=== PATIENT | male | born 1970 | race Caucasian/White ===

== ENCOUNTER 2017-12-30 21:37 | Observation (INO) | payer OTHER ==
[2017-12-30 21:38] VITALS: BMI 26.9
--- NOTE | 2017-12-30 21:47 | ED PDOC ---
Arrival/HPI - General Time Seen by Provider: 12/30/17 21:43 Historian: Patient - History of Present Illness Narrative History of Present Illness (Text): 12/30/17 21:47 James Godinez is a 47 year old male smoker who presents to the ED complaining of chest pain and back pain. Patient states he woke up yesterday morning with left-sided chest pain radiating to his left mid back, which is worsened with movement and deep inspiration. Patient states he took Motrin twice yesterday with no significant relief. Patient denies any shortness of breath, abdominal pain, nausea, vomiting, headache, or any other complaints. Symptom Onset: Gradual Symptom Course: Unchanged Activities at Onset: Rest, Light Context: Home Past Medical History - Provider Review Nursing Documentation Reviewed: Yes - Tetanus Immunization Tetanus Immunization: Up to Date - HEENT Other/Comment: anurisum occipital area - Psychiatric Hx Substance Use: No - Anesthesia Hx Anesthesia: No Hx Anesthesia Reactions: No Hx Malignant Hyperthermia: No Family/Social History - Physician Review Nursing Documentation Reviewed: Yes Family/Social History: Unknown Family HX Smoking Status: Light Smoker < 10 Cigarettes Daily Hx Alcohol Use: No Hx Substance Use: No Allergies/Home Meds Allergies/Adverse Reactions: Allergies No Known Allergies Allergy (Verified 12/30/17 21:48) Home Medications: Home Meds Medication Instructions Recorded Confirmed No Known Home Med 12/30/17 12/30/17 Review of Systems - Physician Review All systems were reviewed & negative as marked: Yes - Review of Systems Constitutional: Normal. absent: Fevers Eyes: Normal ENT: Normal Respiratory: Normal. absent: SOB, Cough Cardiovascular: Chest Pain Gastrointestinal: Normal. absent: Abdominal Pain, Diarrhea, Nausea, Vomiting Genitourinary Male: Normal. absent: Dysuria, Frequency, Hematuria, Urinary Output Changes Musculoskeletal: Back Pain. absent: Neck Pain Skin: Normal. absent: Rash Neurological: Normal. absent: Headache, Dizziness Endocrine: Normal Hemo/Lymphatic: Normal Psychiatric: Normal Physical Exam Vital Signs Reviewed: Yes Vital Signs Temp Pulse Resp BP Pulse Ox 12/30/17 21:45 98.4 F 93 H 20 139/93 H 99 Temperature: Afebrile Blood Pressure: Normal Pulse: Regular Respiratory Rate: Normal Appearance: Positive for: Well-Appearing, Non-Toxic, Comfortable Pain Distress: None Mental Status: Positive for: Alert and Oriented X 3 - Systems Exam Head: Present: Atraumatic, Normocephalic Pupils: Present: PERRL Extroacular Muscles: Present: EOMI Conjunctiva: Present: Normal Mouth: Present: Moist Mucous Membranes Neck: Present: Normal Range of Motion. No: Meningeal Signs, MIDLINE TENDERNESS , Paraspinal Tenderness Respiratory/Chest: Present: Clear to Auscultation, Good Air Exchange. No: Respiratory Distress, Accessory Muscle Use Cardiovascular: Present: Regular Rate and Rhythm, Normal S1, S2. No: Murmurs Abdomen: No: Tenderness, Distention, Peritoneal Signs Back: Present: Normal Inspection Upper Extremity: Present: Normal Inspection. No: Cyanosis, Edema Lower Extremity: Present: Normal Inspection. No: Edema Neurological: Present: GCS=15, CN II-XII Intact, Speech Normal, Motor Func Grossly Intact, Normal Sensory Function, Normal Cerebellar Funct Skin: Present: Warm, Dry, Normal Color. No: Rashes Psychiatric: Present: Alert, Oriented x 3, Normal Insight, Normal Concentration Medical Decision Making ED Course and Treatment: 12/30/17 21:47 Impression: 47 year old male c/o left-sided chest pain radiating to left back. Plan: -- EKG -- CXR -- Labs, cardiac enzymes, D-dimer -- Aspirin -- Percocet -- Reassess and disposition Prior Visits: Notes and results from previous visits were reviewed. Progress Notes: Reviewed EKG, NSR at 82 bpm. Incomplete RBBB. 12/31/17 00:15 CXR reviewed, shows no acute processes. 12/31/17 00:[address] Philippe, who is aware and agrees with plan. Accepts pt in to her service. Pt will go to Telemetry observation for chest pain. Requests Dr. An on consult. - Lab Interpretations Lab Results: 12/30/17 22:30 12/30/17 22:30 Lab Results 12/30/17 22:30: D-Dimer, Quantitative < 200 12/30/17 22:30: WBC 8.6 D, RBC 4.67, Hgb 13.4 L, Hct 40.1 L, MCV 85.9, MCH 28.7 , MCHC 33.4, RDW 13.6, Plt Count 259, MPV 11.0 12/30/17 22:30: Sodium 144, Potassium 3.8, Chloride 107, Carbon Dioxide 28, Anion Gap 13, BUN 16, Creatinine 1.1, Est GFR ( Amer) > 60, Est GFR (Non- Af Amer) > 60, Random Glucose 126 H, Calcium 9.0, Total Bilirubin 0.3, AST 24, ALT 38, Alkaline Phosphatase 42, Lactate Dehydrogenase 321 L, Total Creatine Kinase 173, Troponin I < 0.01, Total Protein 6.8, Albumin 4.2, Globulin 2.6, Albumin/Globulin Ratio 1.6 12/30/17 22:30: PT 12.2, INR 1.07, APTT 30.7 I have reviewed the lab results: Yes - RAD Interpretation Radiology Orders: 12/30/17 21:54 CHEST PORTABLE [RAD] [employer] Project Manager: ED Physician - EKG Interpretation Interpreted by ED Physician: Yes Type: 12 lead EKG - Medication Orders Current Medication Orders: Morphine Sulfate (Morphine) 4 mg IVP STAT STA Stop: 12/31/17 00:26 Discontinued Medications Aspirin (Aspirin) 325 mg PO ONCE STA Stop: 12/30/17 22:01 Last Admin: 12/30/17 22:30 Dose: 325 mg Oxycodone/Acetaminophen (Percocet 5/325 Mg Tab) 1 tab PO STAT STA Stop: 12/30/17 22:01 Last Admin: 12/30/17 22:35 Dose: 1 tab [facility] Pain Assessment Document 12/30/17 22:35 (Rec: 12/30/17 22:35 [id number]) Pain Reassessment Is this a pain reassessment? Yes Location Pain Location Body Site Chest Back Leg Re-Assess: [facility] Pain Assessment Document 12/30/17 23:35 (Rec: 12/31/17 00:25 [id number]) Pain Reassessment Is this a pain reassessment? Yes Sleep Is patient sleeping during reassessment? No Presence of Pain Presence of Pain Yes Description Pain not relieved and LIP/MD was Yes notified - Scribe Statement The provider has reviewed the documentation as recorded by the Scribe Aranza Kennedy All medical record entries made by the Scribe were at my direction and personally dictated by me. I have reviewed the chart and agree that the record accurately reflects my personal performance of the history, physical exam, medical decision making, and the department course for this patient. I have also personally directed, reviewed, and agree with the discharge instructions and disposition. Disposition/Present on Arrival - Present on Arrival Any Indicators Present on Arrival: No History of DVT/PE: No History of Uncontrolled Diabetes: No Urinary Catheter: No History of Decub. Ulcer: No History Surgical Site Infection Following: None - Disposition Have Diagnosis and Disposition been Completed?: Yes Diagnosis: Chest pain Disposition: HOSPITALIZED Disposition Time: 00:37 Patient Plan: Observation Condition: STABLE Discharge Instructions (ExitCare): Chest Pain (ED)
[2017-12-30] MEDS ORDERED: Oxycodone/Acetaminophen 5/325 mg Tab PO STA (22:00)
[2017-12-30 23:19] LABS: HEMOGLOBIN 13.4 g/dL (14.0-18.0); MEAN CELL VOLUME 85.9 fl (80.0-105.0); MEAN CORPUSCULAR HEMOGLOBIN 28.7 pg (25.0-35.0); MEAN CORPUSCULAR HGB CONC 33.4 g/dl (31.0-37.0); RBC 4.67 10^6/uL (3.5-6.1); RED CELL DISTRIBUTION WIDTH 13.6 % (11.5-14.5); WHITE BLOOD COUNT 8.6 10^3/ul (4.5-11.0)
[2017-12-30 23:23] LABS: INR 1.07; PARTIAL THROMBOPLASTIN TIME 30.7 Seconds (25.1-36.5); PROTHROMBIN TIME 12.2 SECONDS (9.4-12.5)
[2017-12-30 23:32] LABS: ALB/GLOB RATIO 1.6 (1.1-1.8); ALBUMIN 4.2 g/dL (3.0-4.8); ALT/SGPT 38 U/L (7-56); AST/SGOT 24 U/L (17-59); BLOOD UREA NITROGEN 16 mg/dL (7-21); GFR NON-AFRICAN AMERICAN > 60
[2017-12-30 23:43] LABS: TROPONIN I < 0.01 ng/mL
[2017-12-31] MEDS ORDERED: Morphine 4 mg/ml ISec IVP STA (00:25)
[2017-12-31 07:58] LABS: TROPONIN I < 0.01 ng/mL
--- NOTE | 2017-12-31 10:14 | CP.PCM.CON ---
History of Present Illness - History of Present Illness History of Present Illness: awake, alert, complaints of left back pain especially when moving and deep breathing radiating to left chest Reason for consultation: Cardiac evaluation of chest pain. History of present illness: A 47 year old male who came in to the ER due complaints of left lower back pain radiating to left chest aggravated when moving and deep breathing. He took Motrin with no relief. He was given Flexeril with some relief. Denies any fall or strenuous activity. 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 Denies any other medical problems. Seen and examined by me and Dr. Hernandez Review of Systems - Review of Systems All systems: reviewed and no additional remarkable complaints except Review of Systems: from HPI Past Patient History - Infectious Disease Hx of Infectious Diseases: None - Tetanus Immunizations Tetanus Immunization: Up to Date - Past Social History Smoking Status: Light Smoker < 10 Cigarettes Daily - NEUROLOGICAL Hx Neurological Disorder: Yes Other/Comment: Brain aneurysm 10 yrs ago. No sx. Monitored yearly - HEENT Other/Comment: anurisum occipital area - MUSCULOSKELETAL/RHEUMATOLOGICAL Hx Falls: No - PSYCHIATRIC Hx Substance Use: No - SURGICAL HISTORY Hx Surgeries: No - ANESTHESIA Hx Anesthesia: No Hx Anesthesia Reactions: No Hx Malignant Hyperthermia: No Meds Allergies/Adverse Reactions: Allergies Allergy/AdvReac Type Severity Reaction Status Date / Time No Known Allergies Allergy Verified 12/30/17 21:48 - Medications Medications: Current Medications Nicotine (Nicoderm Cq) 1 patch TD DAILY [facility]ENN[facility] Last Admin: 12/31/17 03:48 Dose: 1 patch Physical Exam - Constitutional Appears: No Acute Distress - Eye Exam Eye Exam: Normal appearance - ENT Exam ENT Exam: Mucous Membranes Moist - Respiratory Exam Respiratory Exam: Decreased Breath Sounds, NORMAL BREATHING PATTERN - Cardiovascular Exam Cardiovascular Exam: +S1, +S2 Additional comments: left lower back pain radiating to left chest worse when moving and deep breathing Site no redness, no swelling - GI/Abdominal Exam GI & Abdominal Exam: Normal Bowel Sounds, Soft - Extremities Exam Extremities exam: Positive for: normal capillary refill - Neurological Exam Neurological exam: Alert, Oriented x3 - Psychiatric Exam Psychiatric exam: Normal Affect - Skin Skin Exam: Dry, Warm Results - Vital Signs Recent Vital Signs: Last Vital Signs Temp 98.3 F 12/31/17 06:00 Pulse 64 12/31/17 06:00 Resp 18 12/31/17 06:00 BP 106/78 12/31/17 06:00 Pulse Ox 100 12/31/17 02:00 - Labs Result Diagrams: 12/30/17 22:30 12/30/17 22:30 Labs: Laboratory Results - last 24 hr 12/31/17 06:30 Lactate Dehydrogenase 315 L Total Creatine Kinase 145 Troponin I < 0.01 Assessment & Plan - Assessment and Plan (Free Text) Assessment: A 47 year old male who came in to the ER due complaints of left lower back pain radiating to left chest aggravated when moving and deep breathing. He took Motrin with no relief. He was given Flexeril with some relief. Denies any fall or strenuous activity. 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 Denies any other medical problems. No previous cardiac work up at [facility] [place]. Atypical chest pain, Troponin normal.EKG - normal sinus rhythm,no ischemia, Chest X ray normal. Plan: Atypical chest pain, musculoskeltal in nature Heart rate and blood pressure controlled Troponin x 2 normal Pain management for back pain Will start Naproxen Smoking cessation On Nicoderm patch Continue current treatment Continue current medication Out patient ECHO and Stress test Further recommendation during hospital course Will follow up Plan and treatment discussed with Dr. Hernandez Thank you Dr. Philippe for the opportunity of taking care of Mr. James Godinez - Date & Time Date: 12/31/17 Time: 06:35
[2017-12-31] MEDS ORDERED: Pantoprazole 40 mg EC Tab PO STA (10:29)
[2017-12-31] MEDS ORDERED: Naproxen 550 mg Tab PO STA (10:32)
--- NOTE | 2017-12-31 10:32 | RAD ---
Date of service: 12/30/2017 HISTORY: pain COMPARISON: No prior. FINDINGS: LUNGS: The lungs are well inflated and clear. PLEURA: No significant pleural effusion identified, no pneumothorax apparent. CARDIOVASCULAR: Normal. OSSEOUS STRUCTURES: No significant abnormalities. VISUALIZED UPPER ABDOMEN: Normal. OTHER FINDINGS: None. IMPRESSION: No active pulmonary disease.
[2017-12-31] MEDS: Naproxen 550 mg Tab PO SCH ×2 (10:42→17:09)
--- NOTE | 2017-12-31 12:54 | CARD ---
APPROVED REPORT Date of service: 12/30/2017 EKG Measurement Heart [id number] <Conclusion> Normal sinus rhythm Incomplete right bundle branch block Borderline ECG
[2017-12-31 14:14] LABS: TROPONIN I < 0.01 ng/mL
--- NOTE | 2017-12-31 23:33 | HP ---
12/31/17 Copied To: Pam Philippe MD Attending MD: Pam Philippe MD CHIEF COMPLAINT: Chest pain. HISTORY OF PRESENT ILLNESS: Mr. James Godinez, 47-year-old male with smoking history. Came to the Emergency Department complaining about chest pain and back pain. The patient states that he woke up yesterday morning with left-sided chest pain, radiating to his left mid back, which is worse with movement and deep inspiration. The patient states that he took Motrin twice yesterday with no significant relief. The patient denies any shortness of breath. No abdominal pain. No nausea, vomiting, diarrhea. No fever. No chills. Seen by Special Effects Artist, Dr. Hernandez and the patient was given naproxen and Flexeril one dose. With that, he felt a little bit better. PAST MEDICAL HISTORY: Nonsignificant. FAMILY HISTORY: Father and mother, noncontributory. HABITS: Smoking, light smoker, less than 10 cigarettes as per the patient. Alcohol, no. Substance abuse, no. ALLERGIES: THE PATIENT IS NOT ALLERGIC WITH ANY MEDICATIONS. HOME MEDICATIONS: Denied except Motrin. REVIEW OF SYSTEMS: The patient was seen and examined on the bedside in his room in the telemetry. was sitting on the bedside also. Pain a little bit better, but still having pain in the back side, shooting on the front. No nausea or vomiting. No fever. No chills. No shortness of breath or cough. No abdominal pain, fever, chills, nausea, vomiting. No dysuria, frequency, hematuria, urinary output change. No neck pain. No headache. No dizziness. PHYSICAL EXAMINATION: VITAL SIGNS: Temperature 98.4, pulse 93, respiratory rate 20, blood pressure 139/93, pulse oximetry 99. HEENT: Head normocephalic, atraumatic. Eyes PERRLA. Extraocular muscles intact. Conjunctivae clear. Nose patent. Mucous membrane moist. NECK: Supple. No carotid bruit. No JVD or thyromegaly. CHEST: Bilaterally symmetrical. HEART: S1 and S2 positive. LUNGS: Clear to auscultation. ABDOMEN: Soft. Bowel sounds positive. No organomegaly. EXTREMITIES: No edema. No cyanosis. NEUROLOGICAL: The patient is awake and alert. Moving all 4 extremities. No focal deficits. LABORATORY DATA: White blood cells 8.3, hemoglobin 13.4, hematocrit 40.1, platelets 259. Sodium 145, potassium 3.8, BUN 16, creatinine 1.1, glucose 126. ASSESSMENT AND PLAN: Mr. James Godinez, 47-year-old male with anemia, hyperglycemia. Came with chest pain, dermatitis of lips, hypercholesterolemia, hypertriglyceridemia, anemia. The patient is admitted with chest pain, seen by the fitness technician, Dr. Hernandez's nurse practitioner, Milvia Hanson. Complaining about back pain, radiating to the left chest, aggravated by moving and deep breathing. He took Motrin with no relief. He was given Flexeril with some relief. Denies any fall, strenuous activity. Woke up with pain. He smokes 7-10 cigarettes a day, history of brain aneurysm 10 years ago, every year going for CAT scan. Denies any other medication. According to fitness technician, it look like atypical chest pain. Troponin is normal. EKG, normal sinus rhythm. No ischemia. Chest x-ray is normal. It looks like musculoskeletal in nature. Heart rate and blood pressures are well controlled. I gave the patient Flexeril and naproxen [id number]. Nicotine patch given. Discussion done with Dr. Hernandez. Gastrointestinal, deep venous thrombosis prophylaxes. Repeat labs. We will follow up. Pam Philippe MD MTDMini
[2018-01-01 00:16] VITALS: RESP 22
[2018-01-01] MEDS ORDERED: Pantoprazole 40 mg EC Tab PO SCH (06:00)
[2018-01-01 06:53] VITALS: BP 121/84; PULSE 67; TEMP 98; O2SAT 98
--- NOTE | 2018-01-01 07:36 | CP.PCM.PN ---
Subjective - Date & Time of Evaluation Date of Evaluation: 01/01/18 Time of Evaluation: 06:25 - Subjective Subjective: awake, alert, left back pain better Reason for consultation and follow up: Cardiac evaluation of chest pain, complaints of left lower back pain radiating to left chest aggravated when moving and deep breathing. current smoker. Seen and examined by me and Dr. An Objective - Vital Signs/Intake and Output Vital Signs (last 24 hours): Temp Pulse Resp BP Pulse Ox 98 F 67 22 121/84 98 01/01/18 06:00 01/01/18 06:00 01/01/18 06:00 01/01/18 06:00 01/01/18 06:00 Intake and Output: 01/01/18 01/01/18 06:59 18:59 Intake Total 480 Balance 480 - Medications Medications: Current Medications Cyclobenzaprine HCl (Flexeril) 5 mg PO Q8H [facility] [place] Last Admin: 01/01/18 05:19 Dose: 5 mg Naproxen (Anaprox Ds) 550 mg PO BID [facility] [place] Last Admin: 12/31/17 17:09 Dose: 550 mg Nicotine (Nicoderm Cq) 1 patch TD DAILY [facility] [place] Last Admin: 12/31/17 10:42 Dose: 1 patch Pantoprazole Sodium (Protonix Ec Tab) 40 mg PO 0600 [facility] [place] Last Admin: 01/01/18 05:19 Dose: 40 mg - Labs Labs: PT 12.2 SECONDS (9.4-12.5) 12/30/17 22:30 INR 1.07 12/30/17 22:30 APTT 30.7 Seconds (25.1-36.5) 12/30/17 22:30 - Constitutional Appears: No Acute Distress - Eye Exam Eye Exam: Normal appearance - ENT Exam ENT Exam: Mucous Membranes Moist - Respiratory Exam Respiratory Exam: Decreased Breath Sounds, NORMAL BREATHING PATTERN - Cardiovascular Exam Cardiovascular Exam: +S1, +S2 Additional comments: denies chest pain - GI/Abdominal Exam GI & Abdominal Exam: Soft, Normal Bowel Sounds - Extremities Exam Extremities Exam: Normal Capillary Refill - Neurological Exam Neurological Exam: Alert, Awake, Oriented x3 - Psychiatric Exam Psychiatric exam: Normal Affect - Skin Skin Exam: Intact, Warm Assessment and Plan - Assessment and Plan (Free Text) Assessment: A 47 year old male who came in to the ER due complaints of left lower back pain radiating to left chest aggravated when moving and deep breathing. He took Motrin with no relief. He was given Flexeril with some relief. Denies any fall or strenuous activity. 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 Denies any other medical problems. No previous cardiac work up at [facility] [place]. Atypical chest pain, Troponin normal.EKG - normal sinus rhythm,no ischemia, Chest X ray normal.Placed on Naproxene with relief. Plan: Back pain better with Naproxene Heart rate and blood pressure controlled will discontinue telemetry Smoking cessation On Nicoderm patch Continue current treatment Continue current medication Out patient ECHO and Stress test Will follow up Plan and treatment discussed with Dr. An
--- NOTE | 2018-01-01 09:23 | CT ---
Date of service: 01/01/2018 PROCEDURE: CT Thoracic Spine without contrast HISTORY: upper left back pain COMPARISON: None available. TECHNIQUE: Axial computed tomography images were obtained of the thoracic spine without intravenous contrast. Coronal and sagittal reformatted images were created and reviewed. Radiation dose: Total exam DLP = 738 mGy-cm. This CT exam was performed using one or more of the following dose reduction techniques: Automated exposure control, adjustment of the mA and/or kV according to patient size, and/or use of iterative reconstruction technique. FINDINGS: VERTEBRAE: Unremarkable. No fracture. Normal alignment. DISCS/SPINAL CANAL/NEURAL FORAMINA: Within the limits of the CT technique, no disc herniation seen. No central canal or neural foraminal stenosis.. PARASPINAL SOFT TISSUES: Unremarkable. OTHER FINDINGS: Unremarkable. IMPRESSION: Unremarkable CT of the thoracic spine.
--- NOTE | 2018-01-01 09:37 | MRI ---
Date of service: 01/01/2018 PROCEDURE: MRI BRAIN WITHOUT CONTRAST HISTORY: Brain aneurysm COMPARISON: None available. TECHNIQUE: Multiplanar, multisequence MR images of the brain were obtained without intravenous contrast enhancement. FINDINGS: HEMORRHAGE: None DWI: No evidence of an acute or early subacute infarction. BRAIN PARENCHYMA: No mass effect or edema. No atrophy or chronic microvascular ischemic changes. VENTRICLES: Unremarkable. No hydrocephalus. CRANIUM: Unremarkable. ORBITS: Grossly unremarkable. PARANASAL SINUSES/MASTOIDS: There is a mucous retention cyst in the left maxillary sinus VASCULAR SYSTEM: Skull base flow voids intact. There is no obvious aneurysm. Given the history of past history of aneurysm and MRA study may be helpful for further evaluation. OTHER FINDINGS: None. IMPRESSION: Unremarkable non contrast enhanced MRI of the brain.
[2018-01-01] MEDS: Naproxen 550 mg Tab PO SCH (09:50)
== END 2018-01-01 16:36 | disposition home or self-care (01) ==
LOC: ED 21:37 → ERH 12-31 00:34 → 2RNO 12-31 02:47 → 5RNO 01-01 12:04
PROVIDERS: ADMIT Internal Medicine; ATTEND Internal Medicine
DX: R07.89 Other chest pain (principal); M54.5 Low back pain; D64.9 Anemia, unspecified; E78.00 Pure hypercholesterolemia, unspecified; E78.1 Pure hyperglyceridemia; L30.9 Dermatitis, unspecified; F17.210 Nicotine dependence, cigarettes, uncomplicated
CPT/HCPCS: 36415; 70551; 71045; 72128; 80053; 82550; 83615; 84484; 85027; 85378; 85610; 85730; 93005; 96374; 99285; G0378; J2270

== ENCOUNTER 2018-06-22 09:33 | Emergency (ER) | payer OTHER ==
[2018-06-22 09:56] VITALS: BMI 26.6
[2018-06-22] MEDS ORDERED: Lidocaine 5% Patch TD ONE (10:17)
--- NOTE | 2018-06-22 10:31 | ED PDOC ---
Arrival/HPI - General Historian: Patient - History of Present Illness Narrative History of Present Illness (Text): 06/22/18 10:21 48 year old male with PMH of Hypercholesterolemia, cerebral aneurysm presents to the emergency department with sharp lower back pain x3 days. It's 8/10, shooting, radiates to b/l lower legs up to the knees level, worsens with prolonged sitting/standing, partially relieved with rest and motrin. Patient denies focal neurological symptoms, loss of sensation, urine/bowel incontinence, fever, chills. Patient reports symptoms of cough, runny nose, sneezing, mild headache since yesterday. 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 Patient denied chest pain, SOB, palpitations, dizziness, nausea, vomiting, diarrhea, change in bowel movement. Patient is following up in [facility] in [place] for his cerebral aneurysm, seen neurosurgeon 2 month ago, and has a follow up appointment in 2 years. 06/22/18 10:40 Time/Duration: < week Symptom Onset: Sudden Symptom Course: Worsening Quality: Other (sharp/shooting) Severity Level: 8 Context: Standing, Walking <Ismael Marie - Last Filed: 06/22/18 10:40> <Kennedy Martin - Last Filed: 06/22/18 11:45> - General Chief Complaint: Back Pain Past Medical History - Infectious Disease Hx of Infectious Diseases: None - Tetanus Immunization Tetanus Immunization: Up to Date - Cardiac Hx Cardiac Disorders: No - Pulmonary Hx Respiratory Disorders: No - Neurological Hx Neurological Disorder: Yes Other/Comment: Brain aneurysm 10 yrs ago. No sx. Monitored yearly - HEENT Other/Comment: anurisum occipital area - Musculoskeletal/Rheumatological Hx Falls: No - Psychiatric Hx Substance Use: No - Anesthesia Hx Anesthesia: No Hx Anesthesia Reactions: No Hx Malignant Hyperthermia: No <Ismael Marie - Last Filed: 06/22/18 10:40> - Provider Review Nursing Documentation Reviewed: Yes <Kennedy Martin - Last Filed: 06/22/18 11:45> Family/Social History Family/Social History: Unknown Family HX Smoking Status: Light Smoker < 10 Cigarettes Daily Hx Alcohol Use: No Hx Substance Use: No <Ismael Marie - Last Filed: 06/22/18 10:40> - Physician Review Nursing Documentation Reviewed: Yes <Kennedy Martin - Last Filed: 06/22/18 11:45> Allergies/Home Meds <Ismael Marie - Last Filed: 06/22/18 10:40> <Kennedy Martin - Last Filed: 06/22/18 11:45> Allergies/Adverse Reactions: Allergies No Known Allergies Allergy (Verified 06/22/18 10:00) Review of Systems - Physician Review All systems were reviewed & negative as marked: Yes - Review of Systems Constitutional: Normal Eyes: Normal ENT: Normal Respiratory: Normal Cardiovascular: Normal Gastrointestinal: Normal Genitourinary Male: Normal Musculoskeletal: Back Pain Neurological: Headache, Other (+leg raise test at 60 degrees bilaterally). absent: Focal Weakness Endocrine: Normal Hemo/Lymphatic: Normal Psychiatric: Normal <Ismael Marie - Last Filed: 06/22/18 10:40> Physical Exam Vital Signs Reviewed: Yes Vital Signs Temp Pulse Resp BP Pulse Ox 06/22/18 09:56 98.8 F 80 18 111/78 96 Temperature: Afebrile Blood Pressure: Normal Pulse: Regular Respiratory Rate: Normal Appearance: Positive for: Well-Appearing, Non-Toxic Pain Distress: Moderate Mental Status: Positive for: Alert and Oriented X 3 - Systems Exam Head: Present: Atraumatic, Normocephalic Pupils: Present: PERRL Extroacular Muscles: Present: EOMI Conjunctiva: Present: Normal Mouth: Present: Moist Mucous Membranes Pharnyx: Present: Normal Respiratory/Chest: Present: Clear to Auscultation, Good Air Exchange. No: Respiratory Distress, Accessory Muscle Use, Wheezes, Rhonchi Cardiovascular: Present: Regular Rate and Rhythm, Normal S1, S2 Abdomen: Present: Normal Bowel Sounds. No: Tenderness, Distention Back: Present: Normal Inspection, Pain with Leg Raise (at 60 degrees b/l). No: Midline Tenderness Upper Extremity: Present: Normal Inspection. No: Cyanosis, Edema Lower Extremity: Present: Normal Inspection. No: Edema Neurological: Present: GCS=15, CN II-XII Intact, Speech Normal Skin: Present: Warm, Dry, Normal Color Psychiatric: Present: Alert, Oriented x 3, Normal Insight <Ismael Marie - Last Filed: 06/22/18 10:40> Vital Signs Temp Pulse Resp BP Pulse Ox 06/22/18 09:56 98.8 F 80 18 111/78 96 <Kennedy Martin - Last Filed: 06/22/18 11:45> Medical Decision Making - Medication Orders Current Medication Orders: Discontinued Medications Diazepam (Valium) 5 mg PO ONCE ONE; Protocol Stop: 06/22/18 10:17 Ketorolac Tromethamine (Toradol) 60 mg IM STAT STA Stop: 06/22/18 10:16 Lidocaine (Lidoderm) 1 ea TD ONCE ONE Stop: 06/22/18 10:18 <Ismael Marie - Last Filed: 06/22/18 10:40> ED Course and Treatment: 06/22/18 11:45 James Godinez is a 48 year old male who presents to the emergency department with a complaint of 3 day duration lower back pain. In agreement with resident note, which includes further HPI details. Patient was seen and evaluated with resident, came up with plan and treatment together. - Lab Interpretations Lab Results: Urine Color Yellow (YELLOW) 06/22/18 10:47 Urine Appearance Clear (CLEAR) 06/22/18 10:47 Urine pH 6.0 (4.7-8.0) 06/22/18 10:47 Ur Specific [place] 1.025 (1.005-1.035) 06/22/18 10:47 Urine Protein Negative mg/dL (<30 mg/dL) 06/22/18 10:47 Urine Glucose (UA) Negative mg/dL (NEGATIVE) 06/22/18 10:47 Urine Ketones Negative mg/dL (NEGATIVE) 06/22/18 10:47 Urine Blood Trace-intact (NEGATIVE) H 06/22/18 10:47 Urine Nitrate Negative (NEGATIVE) 06/22/18 10:47 Urine Bilirubin Negative (NEGATIVE) 06/22/18 10:47 Urine Urobilinogen 0.2 E.U./dL (<1 E.U./dL) 06/22/18 10:47 Ur Leukocyte Esterase Negative Tad/uL (NEGATIVE) 06/22/18 10:47 Urine RBC 2 - 5 /hpf (0-2) H 06/22/18 10:47 Urine WBC 0 - 2 /hpf (0-6) 06/22/18 10:47 Ur Epithelial Cells None /hpf (0-5) 06/22/18 10:47 Amorphous Sediment Few /hpf (NONE) 06/22/18 10:47 Urine Bacteria Mod /hpf (NONE) 06/22/18 10:47 Urine Other Uyeast /hpf 06/22/18 10:47 - Medication Orders Current Medication Orders: Discontinued Medications Diazepam (Valium) 5 mg PO ONCE ONE; Protocol Stop: 06/22/18 10:17 Last Admin: 06/22/18 10:39 Dose: 5 mg Ketorolac Tromethamine (Toradol) 60 mg IM STAT STA Stop: 06/22/18 10:16 Last Admin: 06/22/18 10:38 Dose: 60 mg MAR Pain Assessment Document 06/22/18 10:38 OCS (Rec: 06/22/18 10:39 OCS [id number]) Pain Reassessment Is this a pain reassessment? No Sleep Is patient sleeping during reassessment? No Presence of Pain Presence of Pain Yes Pain Scale Used Protocol: PSCALES Pain Scale Used Numeric Location Left, Right or Bilateral Bilateral Upper or Lower Lower Pain Location Body Site Back Description Description Constant Intensity of Pain at present 9 Pain Behavior Irritability Facial Grimacing Aggravating Factors ADL's IM Administration Charges Document 06/22/18 10:38 OCS (Rec: 06/22/18 10:39 OCS [id number]) Injection Site MAR Injection Site Left Arm Charges for Administration # of IM Administrations 1 Lidocaine (Lidoderm) 1 ea TD ONCE ONE Stop: 06/22/18 10:18 Last Admin: 06/22/18 10:38 Dose: 1 ea MAR Transdermal Patch Site Document 06/22/18 10:38 OCS (Rec: 06/22/18 10:38 OCS [id number]) Transdermal Patch Site Transdermal Patch Site Left Lower Back <Kennedy Martin - Last Filed: 06/22/18 11:45> - Scribe Statement The provider has reviewed the documentation as recorded by the Mavisibbaldo Leo Provider Scribe Attestation: All medical record entries made by the Scribe were at my direction and personally dictated by me. I have reviewed the chart and agree that the record accurately reflects my personal performance of the history, physical exam, me dical decision making, and the department course for this patient. I have also personally directed, reviewed, and agree with the discharge instructions and disposition. <Kennedy Martin - Last Filed: 06/22/18 11:45> Disposition/Present on Arrival - Present on Arrival History of DVT/PE: No History of Uncontrolled Diabetes: No Urinary Catheter: No History of Decub. Ulcer: No History Surgical Site Infection Following: None <Ismael Marie - Last Filed: 06/22/18 10:40> - Present on Arrival Any Indicators Present on Arrival: No - Disposition Have Diagnosis and Disposition been Completed?: Yes Disposition Time: 11:35 Patient Plan: Discharge <Kennedy Martin - Last Filed: 06/22/18 11:45> - Disposition Diagnosis: Back pain Disposition: HOME/ ROUTINE Patient Problems: Current Active Problems Problem Status Onset Back pain Acute Condition: IMPROVED Discharge Instructions (ExitCare): Upper Back Pain (DC) Print Language: LAO Additional Instructions: Please follow up with your PCP in 1 week Please take medication as prescribed. Prescriptions: Cyclobenzaprine [Flexeril] 5 mg PO PRN PRN #10 tab PRN Reason: Muscle Spasm Ibuprofen [Motrin] 600 mg PO Q6H #12 tab Lidocaine 5% [Lidoderm] 1 ea TD Q12 #6 patch Referrals: Milly Rasheed MD [Medical Doctor] - Follow up with primary [facility] [place]] - Follow up with primary Forms: [employer] (Telugu), WORK NOTE
[2018-06-22 10:58] LABS: URINE BILIRUBIN NEGATIVE (NEGATIVE); URINE BLOOD TRACE-INTACT (NEGATIVE); URINE GLUCOSE (UA) NEGATIVE (NEGATIVE); URINE LEUKOCYTE ESTERASE NEGATIVE Leu/uL (NEGATIVE); URINE PROTEIN NEGATIVE mg/dL (<30 mg/dL); URINE UROBILINOGEN 0.2 E.U./dL (<1 E.U./dL)
[2018-06-22 10:59] LABS: URINE APPEARANCE CLEAR (CLEAR); URINE COLOR YELLOW (YELLOW)
[2018-06-22 11:06] LABS: URINE BACTERIA MOD /hpf; URINE WBC 0 - 2 /hpf (0-6)
[2018-06-22 11:07] LABS: URINE AMORPHOUS SEDIMENT FEW /hpf
[2018-06-22 11:58] VITALS: BP 104/64; PULSE 79; RESP 17; TEMP 98.2; O2SAT 97
== END 2018-06-22 12:00 | disposition home or self-care (01) ==
LOC: ED 09:33
DX: M54.5 Low back pain (principal); E78.00 Pure hypercholesterolemia, unspecified; F17.210 Nicotine dependence, cigarettes, uncomplicated
CPT/HCPCS: 81001; 96372; 99282; J1885

== ENCOUNTER 2018-06-23 10:21 | Emergency (ER) | payer OTHER ==
[2018-06-23 10:22] VITALS: BMI 26.6
[2018-06-23 12:23] VITALS: PULSE 85; RESP 19; TEMP 98
[2018-06-23 12:24] VITALS: BP 129/85; O2SAT 98
--- NOTE | 2018-06-23 19:31 | ED PDOC ---
Arrival/HPI - General Chief Complaint: Back Pain Time Seen by Provider: 06/23/18 11:15 Historian: Patient - History of Present Illness Narrative History of Present Illness (Text): 06/23/18 19:28 A 48 year old male, with PMH of low back pain, presents to the emergency department complaining of right side back pain that radiates down his RLE for 3- 4 days. Pain is similar to pain he has had in the past "years ago". Patient denies trauma, bowel or bladder dysfunction, saddle paresthesias, weakness, difficulty ambulating. Patient reports he was here yesterday for similar complaint and was given Toradol in the ED and prescriptions for Naprosyn, Lidocaine patch and Flexeril yesterday. Patient states he is not using the Lidocaine patch because he feels like it is not working. Patient denies notes also experiencing frontal headache with nasal congestion. Patient denies sudden onset of h/a, "thunderclap" h/a, worst h/a of his life, neck pain or stiffness, fever, chills, abdominal pain, any urinary symptoms, or any other complaints at this time. Past Medical History - Provider Review Nursing Documentation Reviewed: Yes - Infectious Disease Hx of Infectious Diseases: None - Tetanus Immunization Tetanus Immunization: Up to Date - Cardiac Hx Cardiac Disorders: No - Pulmonary Hx Respiratory Disorders: No - Neurological Hx Neurological Disorder: Yes Other/Comment: Brain aneurysm - HEENT Hx HEENT Disorder: No - Renal Hx Renal Disorder: No - Endocrine/Metabolic Hx Endocrine Disorders: No - Hematological/Oncological Hx Blood Disorders: No - Integumentary Hx Dermatological Disorder: No - Musculoskeletal/Rheumatological Hx Musculoskeletal Disorders: Yes Hx Back Pain: Yes - Gastrointestinal Hx Gastrointestinal Disorders: No - Genitourinary/Gynecological Hx Genitourinary Disorders: No - Psychiatric Hx Psychophysiologic Disorder: No Hx Substance Use: No - Anesthesia Hx Anesthesia: No Hx Anesthesia Reactions: No Hx Malignant Hyperthermia: No Family/Social History - Physician Review Nursing Documentation Reviewed: Yes Family/Social History: No Known Family HX Smoking Status: Light Smoker < 10 Cigarettes Daily Hx Alcohol Use: No Hx Substance Use: No Allergies/Home Meds Allergies/Adverse Reactions: Allergies No Known Allergies Allergy (Verified 06/23/18 10:40) Review of Systems - Physician Review All systems were reviewed & negative as marked: Yes - Review of Systems Genitourinary Male: absent: Dysuria, Frequency, Hematuria, Urinary Output Changes Musculoskeletal: Back Pain (right side back pain) Neurological: Headache (frontal) Physical Exam Vital Signs Reviewed: Yes Vital Signs Temp Pulse Resp BP Pulse Ox 06/23/18 12:23 98 F 85 19 129/85 98 06/23/18 12:22 98 F 85 19 125/83 99 06/23/18 10:41 98.3 F 70 16 113/80 97 Temperature: Afebrile Blood Pressure: Normal Pulse: Regular Respiratory Rate: Normal Appearance: Positive for: Well-Appearing, Non-Toxic, Comfortable Pain Distress: None Mental Status: Positive for: Alert and Oriented X 3 - Systems Exam Head: Present: Atraumatic, Normocephalic Pupils: Present: PERRL Extroacular Muscles: Present: EOMI Conjunctiva: Present: Normal Mouth: Present: Moist Mucous Membranes Pharnyx: Present: Normal Neck: Present: Normal Range of Motion. No: Meningeal Signs, MIDLINE TENDERNESS Respiratory/Chest: Present: Clear to Auscultation, Good Air Exchange. No: Respiratory Distress, Accessory Muscle Use Cardiovascular: Present: Regular Rate and Rhythm, Normal S1, S2. No: Murmurs Abdomen: No: Tenderness, Distention, Peritoneal Signs Back: Present: Paraspinal Tenderness (right-side lumbar region) Upper Extremity: Present: Normal Inspection. No: Cyanosis, Edema Lower Extremity: Present: Normal Inspection. No: Edema Neurological: Present: GCS=15, CN II-XII Intact, Speech Normal, Motor Func Grossly Intact, Normal Sensory Function, Norm Deep Tendon Reflexes, Gait Normal Skin: Present: Warm, Dry, Normal Color. No: Rashes Psychiatric: Present: Alert, Oriented x 3, Normal Insight, Normal Concentration Medical Decision Making ED Course and Treatment: 06/23/18 19:33 Impression: 48 year old male with right side back pain. Plan: -- Prednisone -- Reassess and disposition Progress Notes: 06/23/18 19:33 Patient instructed to stop taking Naprosyn. Patient has been treated with steroids, prednisone, and is feeling better. Patient given Rx for Medrol dose pack, instructions to f/u w/his PCP in 2 days and RTED for new, worsening or concerning symptoms. Patient is agreeable w/POC and verbalized understanding of d/c instructions. - Medication Orders Current Medication Orders: Discontinued Medications Prednisone (Prednisone Tab) 60 mg PO STAT ONE Stop: 06/23/18 11:41 Last Admin: 06/23/18 11:53 Dose: 60 mg - Mavisibe Statement The provider has reviewed the documentation as recorded by the Stephanie Ramirez Provider Mavisibe Attestation: All medical record entries made by the Scribe were at my direction and personally dictated by me. I have reviewed the chart and agree that the record accurately reflects my personal performance of the history, physical exam, medical decision making, and the department course for this patient. I have also personally directed, reviewed, and agree with the discharge instructions and disposition. Disposition/Present on Arrival - Present on Arrival Any Indicators Present on Arrival: No History of DVT/PE: No History of Uncontrolled Diabetes: No Urinary Catheter: No History of Decub. Ulcer: No History Surgical Site Infection Following: None - Disposition Have Diagnosis and Disposition been Completed?: Yes Diagnosis: Low back pain, Sciatica Disposition: HOME/ ROUTINE Disposition Time: 12:00 Patient Plan: Discharge Condition: STABLE Discharge Instructions (ExitCare): Low Back Pain (DC), Sciatica (DC) Additional Instructions: RUSLAN TERRELL, thank you for letting us take care of you today. Your provider was Karolina Espinal MD and you were treated for PAIN IN THE BACK AND LEGS. The emergency medical care you received today was directed at your acute symptoms. If you were prescribed any medication, please fill it and take as directed. It may take several days for your symptoms to resolve. Return to the Emergency Department if your symptoms worsen, do not improve, or if you have any other problems. Please contact your doctor or call one of the physicians/clinics you have been referred to that are listed on the Patient Visit Information form that is included in your discharge packet. Bring any paperwork you were given at discharge with you along with any medications you are taking to your follow up visit. Our treatment cannot replace ongoing medical care by a primary care provider outside of the emergency department. Thank you for allowing the [facility] team to be part of your care today. Prescriptions: Methylprednisolone [Medrol Dose Pack (21 tabs)] 4 mg PO DAILY #21 mg Referrals: [facility] [Outside] - Follow up with primary [facility] at [facility] [Outside] - Follow up with primary Kathya,Milly, MD [Medical Doctor] - Follow up with primary Forms: [employer] (Cameroonian)
== END 2018-06-23 12:22 | disposition home or self-care (01) ==
LOC: ED 10:21
DX: M54.40 Lumbago with sciatica, unspecified side (principal)

== ENCOUNTER 2018-09-27 08:43 | Emergency (ER) | payer OTHER ==
[2018-09-27 09:12] VITALS: RESP 18; TEMP 98.4; BMI 28.7
--- NOTE | 2018-09-27 10:14 | ED PDOC ---
Arrival/HPI - General Chief Complaint: Back Pain Time Seen by Provider: 09/27/18 09:26 Historian: Patient - History of Present Illness Narrative History of Present Illness (Text): 09/27/18 10:11 48yr old male with hx of back pain presents today with low back pain since yesterday. pt denies any recent trauma or injury but states that he does do heavy lifting at work. pt states he has a sharp and achy pain located into the lower back that radiates into the left buttocks and left thigh. Patient denies abdominal pain. No bladder or bowel incontinence. He denies numbness weakness or tingling in the extremities. Patient states he took Naprosynand Flexeril yesterday thinking that the pain would improve. Patient also states that he tried sleeping on the floor last night to help with the pain. Patient denies abdominal pain. No nausea vomiting diarrhea or constipation. No chest pain or shortness of breath. He denies dizziness or weakness. He denies headaches. Patient states his pain is similar to the pain that he has had in the past. Patient states he has not followed up with any doctor for his back pain in the past besides coming to the ER. Past Medical History - Provider Review Nursing Documentation Reviewed: Yes Primary Care Provider: Non [facility] Provider, - Travel History Have you recently traveled outside [place] w/in the past 3 mons?: No - Infectious Disease Hx of Infectious Diseases: None - Tetanus Immunization Tetanus Immunization: Up to Date - Cardiac Hx Cardiac Disorders: No - Pulmonary Hx Respiratory Disorders: No - Neurological Hx Neurological Disorder: Yes Other/Comment: Brain aneurysm - HEENT Hx HEENT Disorder: No - Renal Hx Renal Disorder: No - Endocrine/Metabolic Hx Endocrine Disorders: No - Hematological/Oncological Hx Blood Disorders: No - Integumentary Hx Dermatological Disorder: No - Musculoskeletal/Rheumatological Hx Musculoskeletal Disorders: Yes Hx Back Pain: Yes - Gastrointestinal Hx Gastrointestinal Disorders: No - Genitourinary/Gynecological Hx Genitourinary Disorders: No - Psychiatric Hx Psychophysiologic Disorder: No Hx Substance Use: No - Anesthesia Hx Anesthesia: No Hx Anesthesia Reactions: No Hx Malignant Hyperthermia: No Family/Social History - Physician Review Nursing Documentation Reviewed: Yes Family/Social History: Unknown Family HX Smoking Status: Light Smoker < 10 Cigarettes Daily Hx Alcohol Use: No Hx Substance Use: No Allergies/Home Meds Allergies/Adverse Reactions: Allergies No Known Allergies Allergy (Verified 09/27/18 09:00) Review of Systems - Review of Systems Constitutional: absent: Fatigue, Fevers Respiratory: absent: SOB, Cough Cardiovascular: absent: Chest Pain, Palpitations Gastrointestinal: absent: Abdominal Pain, Constipation, Diarrhea, Nausea, Vomiting Genitourinary Male: absent: Dysuria, Frequency, Hematuria Musculoskeletal: Back Pain (Radiating into the left leg). absent: Neck Pain Skin: absent: Rash, Pruritis Neurological: absent: Headache, Dizziness Psychiatric: absent: Anxiety, Depression Physical Exam Vital Signs Reviewed: Yes Vital Signs Temp Pulse Resp BP Pulse Ox 09/27/18 08:55 98.4 F 65 18 124/81 96 Temperature: Afebrile Blood Pressure: Normal Pulse: Regular Respiratory Rate: Normal Appearance: Positive for: Well-Appearing, Non-Toxic, Comfortable Pain Distress: None Mental Status: Positive for: Alert and Oriented X 3 - Systems Exam Head: Present: Atraumatic Mouth: Present: Moist Mucous Membranes Neck: Present: Normal Range of Motion Respiratory/Chest: Present: Clear to Auscultation, Good Air Exchange. No: Respiratory Distress, Accessory Muscle Use Cardiovascular: Present: Regular Rate and Rhythm, Normal S1, S2. No: Murmurs Abdomen: No: Tenderness, Distention, Peritoneal Signs Back: Present: Normal Inspection, Paraspinal Tenderness (Positive bilateral paraspinal tenderness across the lower lumbar spine.), Other (Tenderness noted over the left sciatic foramen). No: CVA Tenderness, Midline Tenderness, Pain with Leg Raise (Negative straight leg raise) Upper Extremity: Present: Normal Inspection Lower Extremity: Present: Normal Inspection, Normal ROM, Neurovascularly Intact Neurological: Present: GCS=15, Speech Normal, Motor Func Grossly Intact, Normal Sensory Function Skin: Present: Warm, Dry, Normal Color. No: Rashes Psychiatric: Present: Alert, Oriented x 3 Medical Decision Making ED Course and Treatment: 09/27/18 10:14 Patient nontoxic well-appearing in no distress with stable vital signs. Toradol and Valium given X-ray of the lumbar spine: no fx Patient reassessment: Feeling better with medications ambulating with a steady gait. Muscle strength 5 out of 5 bilaterally. I discussed all results in depth with the patient I advised to followup with the orthopedist and back specialist within the next 2 days. Return if symptoms worsen persist or new symptoms develop. I have advised the patient of prescription for narcotics and the addictive properties of the narcotics. Impression: Back pain Motrin every 6 hours as needed for pain Flexeril one tablet every 8 hours as needed for muscle spasms: May cause drowsiness Percocet: one tablet every 6 hours as needed for moderate to severe pain: May cause drowsiness Followup with the orthopedist within the next 2 days Followup with primary care physician within the next 2 days Return if symptoms worsen persist or if new symptoms develop - Medication Orders Current Medication Orders: Discontinued Medications Diazepam (Valium) 5 mg PO ONCE ONE Stop: 09/27/18 09:36 Last Admin: 09/27/18 09:47 Dose: 5 mg Ketorolac Tromethamine (Toradol) 60 mg IM STAT STA Stop: 09/27/18 09:36 Last Admin: 09/27/18 09:49 Dose: 60 mg MAR Pain Assessment Document 09/27/18 09:49 BB (Rec: 09/27/18 09:[address] [facility] [id number]) Pain Reassessment Is this a pain reassessment? No Sleep Is patient sleeping during reassessment? No Presence of Pain Presence of Pain Yes Pain Scale Used Protocol: PSCALES Pain Scale Used Numeric Location Upper or Lower Lower Pain Location Body Site Back Description Description Throbbing Intensity of Pain at present 9 Pain Behavior Moaning Irritability Grasping Site Rubbing Site Restlessness IM Administration Charges Document 09/27/18 09:49 BB (Rec: 09/27/18 09:[address] [facility] [id number]) Injection Site MAR Injection Site Left Gluteus Medius Charges for Administration # of IM Administrations 1 Disposition/Present on Arrival - Present on Arrival Any Indicators Present on Arrival: No History of DVT/PE: No History of Uncontrolled Diabetes: No Urinary Catheter: No History of Decub. Ulcer: No History Surgical Site Infection Following: None - Disposition Have Diagnosis and Disposition been Completed?: Yes Diagnosis: Back pain Disposition: HOME/ ROUTINE Disposition Time: 10:14 Patient Plan: Discharge Condition: GOOD Discharge Instructions (ExitCare): Low Back Pain (DC) Additional Instructions: Motrin every 6 hours as needed for pain Flexeril one tablet every 8 hours as needed for muscle spasms: May cause drowsiness Percocet: one tablet every 6 hours as needed for moderate to severe pain: May cause drowsiness Followup with the orthopedist within the next 2 days Followup with primary care physician within the next 2 days Return if symptoms worsen persist or if new symptoms develop The patient required opioid analgesia and was counseled on side effects, potential risk of addiction, recommendation to minimize use, and available alternatives to opiates. Prescriptions: diaZEpam [Valium] 2 mg PO Q8H PRN #6 tab PRN Reason: muscle spasms Ibuprofen [Motrin] 600 mg PO Q6H PRN #20 tab PRN Reason: pain/fever reduction oxyCODONE/Acetaminophen [Percocet 5/325 mg Tab] 1 tab PO Q6H PRN #6 tab PRN Reason: moderate to severe pain Referrals: Lorie Schwarz MD [Primary Care Provider] - Follow up with primary Hill Ray MD [Staff Provider] - Follow up with primary Quincy Aguilar MD [Staff Provider] - Follow up with primary [employer] [facility] [employer] [facility] [Outside] - Follow up with primary Forms: [facility] (A[place]ijani), WORK NOTE, Opioid Discharge Information
[2018-09-27 11:36] VITALS: BP 115/68; PULSE 60; O2SAT 98
--- NOTE | 2018-09-27 12:47 | RAD ---
Date of service: 09/27/2018 PROCEDURE: Radiographs of the Lumbar Spine. HISTORY: back pain COMPARISON: No prior. TECHNIQUE: 4 views obtained. FINDINGS: BONES: Normal alignment. No listhesis. No fracture. DISC SPACES: Unremarkable. OTHER FINDINGS: None. IMPRESSION: Unremarkable radiographs of the lumbar spine.
== END 2018-09-27 12:23 | disposition home or self-care (01) ==
LOC: ED 08:43
DX: M54.5 Low back pain (principal); F17.210 Nicotine dependence, cigarettes, uncomplicated
CPT/HCPCS: 72110; 96372; 99283; J1885